=== PATIENT | male | born 1985 | race African-American/Black ===

== ENCOUNTER 2023-09-20 02:03 | Observation (INO) | payer OTHER ==
[~2023-09-20] VITALS: Ht 172.8 cm; Wt 66.0 kg
[2023-09-20] VITALS (11 sets, daily range): BP systolic 104–125; BP diastolic 62–77; PULSE 67–92; TEMP 97.8–98.5
[2023-09-20] MEDS ORDERED: LR 1,000 ML IV SCH (02:30)
[2023-09-20] MEDS ORDERED: Morphine 4 MG/ML VIAL IV PRN (02:30)
[2023-09-20] MEDS ORDERED: Ondansetron 4 MG/2 ML VIAL IV PRN ×3 (02:30→13:30)
--- NOTE | 2023-09-20 04:35 | NUR ---
Patient arrived to room 329 ambulatory-direct admit from [facility]. Spouse at bedside as well. Oriented to room and policy. Patient primarily speaks citizen of [place] but does understand some mal[place]ian. Assessment complete. A&Ox3. Denies pain/nausea/shortness of breath. VS stable. States right lower quadrant with sharp intermittent pain with pressure to that side. INT to right [id number] well-LR@100mls/hr infusing without difficulty. Assessment WNL. Plan of care discussed for NPO/IV fluids/pain/nausea meds as needed. Verbalizes understanding. Call light in reach. Will monitor.
--- NOTE | 2023-09-20 08:39 | NUR ---
PATIENT ALERT AND ORIENTED X4. VSS. PATIENT HERE FOR APPENDICITIS. IV TO RIGHT FA WITH LR RUNNING AT 100ML/HOUR. PATIENT ON RA. SURGICAL CONSENT SIGNED. PATIENT REPORTS PAIN 5/10, DENIES NEED FOR PAIN MEDICATION. NO FURTHER NEEDS. CALL LIGHT IN REACH.
--- NOTE | 2023-09-20 09:34 | NUR ---
upkeep worker met with pt and his , Kenney [phone] to discuss intake information. Pt primarily speaks [place]ian, but declined powerhouse mechanic helper and understood Citizen [place]. She confirmed they live together with their child in [place]. Pt does not have a PCP because he has typically been healthy. She was agreeable to the PCP list for follow-up. SW provided this and explained who was in [place]. She confirmed pt obtains medications from [facility] with no difficulties. He has [employer] insurance through work. He is independent with ADLS and uses no DME. He does not have a DPOA-HC and was agreeable to being NOK. Discharge Plan: home
[2023-09-20] MEDS ORDERED: dexAMETHasone 10 MG/ML VIAL ONE (10:39)
[2023-09-20] MEDS ORDERED: NS 10 ML IV ONE (10:39)
[2023-09-20] MEDS ORDERED: fentaNYL 50 MCG/ML 2 ML VIAL ONE (10:39)
[2023-09-20] MEDS ORDERED: Ondansetron 4 MG/2 ML VIAL ONE (10:39)
[2023-09-20] MEDS ORDERED: Rocuronium 50 MG/5 ML Multi-Dose VIAL ONE (10:39)
[2023-09-20] MEDS ORDERED: Meperidine 50 MG/ML 1 ML VIAL IV PRN (11:00)
[2023-09-20] MEDS ORDERED: droPERidol 2.5 MG/ML 2 ML VIAL IV PRN (11:00)
[2023-09-20] MEDS ORDERED: fentaNYL 50 MCG/ML 1 ML SYRINGE/VIAL [PACU/SDC ONLY] IV PRN (11:00)
[2023-09-20] MEDS ORDERED: hydrALAZINE 20 MG/ML 1 ML VIAL IV PRN (11:00)
[2023-09-20] MEDS ORDERED: HYDROmorphone 1 MG/1 ML SYRINGE [PACU/SDC ONLY] IV PRN ×2 (11:00)
--- NOTE | 2023-09-20 11:51 | NUR ---
PATIENT OFF OF FLOOR FOR SURGERY
[2023-09-20] MEDS ORDERED: Topical Skin Adhesive 1 EACH (1 ML) TOP ONE (12:40)
[2023-09-20] MEDS ORDERED: NORCO 325 MG-51 TAB PO (13:20)
[2023-09-20] MEDS ORDERED: Ibuprofen 600 MG TAB PO PRN (13:30)
[2023-09-20] MEDS ORDERED: Acetaminophen 325 MG TAB PO PRN (13:30)
--- NOTE | 2023-09-20 13:31 | NUR ---
D: Letterpress Setter stopped by room on rounds. A: Pt was resting and content with family in the room. Pt has no needs right now. P: Letterpress Setter informed pt that if he needed anything to let his nurse know. Letterpress Setter will follow up as needed.
--- NOTE | 2023-09-20 14:10 | NUR ---
PATIENT BROUGHT TO FLOOR AT APPROXIMATELY 1410. POST OP VITALS RUNNING. POST OP FLUIDS INFUSING INTO IV INTO RIGHT FA. LAPS X4 CDI WITH SKIN GLUE. PATIENT TOLERATING ICE CHIPS.
--- NOTE | 2023-09-20 16:45 | NUR ---
PATIENT VOIDED, POST OP VITALS ARE WNL. PATIENT TOLERATING PO. PATIENT REPORTS PAIN 6/10, REQUESTS PAIN MEDICATION.
--- NOTE | 2023-09-20 17:34 | NUR ---
DISCHARGE INSTRUCTIONS PROVIDED. PATIENT EDUCATION GIVEN. IV DC'D. FOLLOW UP APPOINTMENT DISCUSSED. MEDICATION REVIEWED. PATIENT AND DENY ANY QUESTIONS OR CONCERNS. PATIENT ESCORTED OUT VIA WHEELCHAIR.
[2023-09-23] MEDS ORDERED: LR 1,000 ML IV SCH (05:00)
== END 2023-09-20 17:35 | disposition home or self-care (01) ==
LOC: SURG 02:03 → EDSEX 04:20 → SURG 04:20
PROVIDERS: ADMIT Surgery
DX: K35.80 Unspecified acute appendicitis (principal)
CPT/HCPCS: G0378; G0379; J0690; J1100; J2405; J2704; J3010; J7120